=== PATIENT | male | born 1985 | race Caucasian/White ===

== ENCOUNTER 2024-01-10 10:59 | Emergency (ER) | payer OTHER, SELFPAY ==
[2024-01-10] VITALS (12 sets, daily range): BP systolic 125–176; BP diastolic 78–98; PULSE 70–89; RESP 18; TEMP 36.7; O2SAT 97–99
--- NOTE | 2024-01-10 11:13 | ED.GENADUL_ITS ---
Discharge Plan Disposition Patient Disposition: Home Condition: Stable Discharge Details Clinical Impression: Staph skin infection Primary Care Provider: Unknown,Unknown ED Provider: Jorje Flynn Home Meds and New Rx's Prescriptions: Continued doxycycline monohydrate 100 mg capsule 100 mg PO BID hydroxyzine HCl 50 mg tablet 50 mg PO BID ibuprofen 200 mg tablet 600 mg PO BID PRN buprenorphine HCl 2 mg tablet, sublingual 2 mg sublingual DAILY buprenorphine HCl 8 mg tablet, sublingual 8 mg sublingual DAILY Discharge Instructions Instructions: MRSA (Methicillin-Resistant Staphylococcus Aureus) (ED) Additional Instructions: You were seen in the emergency department for your multiple sites of staph skin infection. We provided you with a topical antibiotic called mupirocin to aid in wound care at your facility. The wound culture is pending, there is no signs of sepsis on labs, HIV and hep B&C tests are send outs so you should have results next week. Please continue generalized wound care, continue mupirocin and doxycycline. Please return for any increasing tachycardia, respiratory rate, fever, red streaking up the arms from the sites but I think they are localized small abscesses. Apply the mupirocin with every wound dressing change. Use OTC HibiClens soap in the shower for 5-10 days for decolonization. Discharge Data Discharge Date/Time-TO BE ENTERED AT DEPARTURE: 01/10/24 12:42 HPI General Date/Time Provider Initiated Documentation: 01/10/24 11:09 . HPI Narrative: 38 year-old male presents to ED today by DOC/ambulating with a chief complaint of multiple minor skin lesions popping up in bilateral forearms, L most focal, draining purulent material with onset over the past few days. Quality described as mild tenderness to touch, denies new punctures or trauma to the area- has past Xylazine use, history of MRSA, no radiation to fever, tachycardia, nausea, syncope, palpitations, vomiting. Severity is described as mild to moderate. Palliating factors include has bandages by assisted staff, on doxycycline per assisted med staff. Provoking factors include nothing specific. Patient not anticoagulated. Related Data Home Medications Medication Instructions Recorded Confirmed buprenorphine HCl 2 mg sublingual 2 mg sublingual DAILY 01/10/24 01/10/24 tablet buprenorphine HCl 8 mg sublingual 8 mg sublingual DAILY 01/10/24 01/10/24 tablet doxycycline monohydrate 100 mg 100 mg PO BID 01/10/24 01/10/24 capsule hydroxyzine HCl 50 mg tablet 50 mg PO BID 01/10/24 01/10/24 ibuprofen 200 mg tablet 600 mg PO BID PRN 01/10/24 01/10/24 Allergies Allergy/AdvReac Type Severity Reaction Status Date / Time Sulfa (Sulfonamide Allergy Severe Anaphylaxis Verified 01/10/24 11:05 Antibiotics) General Stated Complaint: Cellulitis FELIX: 3 Review of Systems All systems reviewed & are unremarkable except as noted in HPI and below Exam Narrative Exam Narrative: GENERAL APPEARANCE: Well-nourished, non-toxic, awake and alert, atraumatic, no acute distress. SKIN: Warm, pink, dry, multiple small draining lesions to the left forearm, early lesion on the right dorsal hand, all have scant purulent material but need no incision and drainage, no lymphadenitis spreading up the arm HEAD: Normocephalic, atraumatic, normal hair distribution for gender/age. EYES: Pupils PERRLA, EOMs intact without nystagmus, normal conjunctiva, no exudates on lids/lashes. ENT: Nares patent, no circumoral cyanosis, no facial swelling NECK: Supple, trachea midline, painless cervical ROM. LUNGS/CHEST: Lungs CTA bilaterally- no rhonchi/rales/wheezes diffusely, non- labored respirations, normal A/P diameter, symmetrical expansion, no chest wall deformity HEART (CV/PV): Regular rate and rhythm without murmur, no peripheral edema, no JVD. ABDOMEN: Soft, non-distended, no guarding, no tenderness. MSK: Normal ROM, no swelling/deformity to bilateral UEs or LEs, moving all extremities without weakness, no cyanosis, spine midline without tenderness, normal curvature. NEURO: Mental Status AAOx4 - alert to person, place, time, events No facial droop, no forehead involvement. Motor: No focal weakness - strength 5/5 in bilateral UEs and LEs, proximal and distal, symmetric. Sensory: sensation intact to light touch globally. Gait normal: patient ambulated without ataxia into ED room. PSYCH: euthymic, cooperative, pleasant, appropriate speech Course Vital Signs Vital signs: Vital Signs Temperature 36.7 C 01/10/24 11:02 Pulse 88 01/10/24 11:02 Respiratory Rate 18 01/10/24 11:02 Blood Pressure 176/89 H 01/10/24 11:02 Pulse Oximetry 99 01/10/24 11:02 Temperature 36.7 C 01/10/24 11:02 Temperature Source Skin 01/10/24 11:02 Pulse 88 01/10/24 11:02 Respiratory Rate 18 01/10/24 11:02 Respiratory Effort Normal, Non-Labored 01/10/24 11:05 Blood Pressure 176/89 H 01/10/24 11:02 Blood Pressure Position Sitting 01/10/24 11:02 Pulse Oximetry 99 01/10/24 11:02 Oxygen Delivery Method Room Air 01/10/24 11:02 Oxygen Flow Rate 0 01/10/24 11:02 Pain Level 0 01/10/24 11:02 Medical Decision Making This dictation utilizes [id number] dictation software and may contain unedited grammatical errors. 38 y/o M presents to ED today with a chief complaint of likely staph skin in fections, placed on doxycycline by [facility] medical staff, needs laboratory workup. Patient has history of IVDU including Xylazine, history of MRSA, has multiple lesions of R & L forearms, denies new IVDU. no fevers, no lymphadenitis. Patients' medical history: History of IVDU, history of MRSA. Family and social history: incarcerated. Pertinent exam findings / vital signs include SKIN: Warm, pink, dry, multiple small draining lesions to the left forearm, early lesion on the right dorsal hand, all have scant purulent material but need no incision and drainage, no lymphadenitis spreading up the arm. Differential / pathologies of concern include staph skin infection, not drainable abscess', cellulitis, unlikely sepsis. Diagnostic studies of: -CBC, CMP, HIV Rapid & Ab, Hep B/C Panel, Blood Cx's, Lactate, Procalcitonin. -CBC shows no leukocytosis -Lactate within normal limits, procalcitonin negative -Mild LFTs on CMP otherwise benign -HIV rapid negative -Other studies pending, send-outs Interventions of: -continue PO doxycyline, add mupirocin to wound care with DOC medical staff. ED Course/Assessment/Plan: 38-year-old incarcerated individual presents with minor staph skin lesions of left forearm as well as early forming lesion on the right dorsal hand, likely consistent with MRSA infection, added mupirocin and recommend he continue doxycycline, performed laboratory studies for the medical staff at [facility], do not suspect sepsis at this time, patient is stable and has adequate wound care by the dressings [facility] medical staff has applied, counseled strict return criteria for any developing fever, tachycardia, red streaking up the arms. Findings not consistent with sepsis, necrotizing gangrene. Disposition of staph skin infection. Patient verbalized understanding of the plan and return to ED criteria and engaged in shared decision making. Medical Records Medical records reviewed: Yes I reviewed the patient's medical records. Lab Data Lab results reviewed: Yes I reviewed the patient's lab results. Labs: 01/10/24 12:03 Blood Blood Culture - Pending 01/10/24 08:30 Leg - Front Wound Culture - Pending 01/10/24 08:30 Leg - Front Gram Stain - Pending Laboratory Tests Range/Units 01/10/24 11:20 WBC (4.4-10.8) 10^3/uL 6.32 RBC (4.36-5.78) 10^6/uL 5.28 Hgb (13.5-17.5) g/dL 14.4 Hct (40.0-50.0) % 45.9 MCV (80-95) fL 87 MCH (27.0-33.0) pg 27.3 MCHC (32.0-36.0) % 31.4 L RDW (11.8-14.1) % 13.7 Plt Count (130-400) 10^3/uL 317 MPV (8.0-11.0) fL 9.1 Immature Gran % 0.5 Neutrophils % 60.4 Lymphocytes % 27.1 Monocytes % 9.2 Eosinophils % 2.2 Basophils % 0.6 Nucleated RBC % (0.0-0.3) % 0.0 Absolute Neutrophils (1.2-6.7) 10^3/uL 3.82 Absolute Lymphocytes (1.2-3.4) 10^3/uL 1.71 Absolute Monocytes (0.1-0.8) 10^3/uL 0.58 Absolute Eosinophils (0.0-0.7) 10^3/uL 0.14 Absolute Basophils (0.0-0.2) 10^3/uL 0.04 VBG Lactate (0.6-1.4) mmol/L 1.2 Sodium (136-145) mmol/L 142 Potassium (3.5-5.1) mmol/L 4.4 Chloride (98-107) mmol/L 104 Carbon Dioxide (21.0-32.0) mmol/L 30.7 Anion Gap (3-11) mmol/L 7.3 BUN (7-18) mg/dL 16 Creatinine (0.70-1.30) mg/dL 0.8 Est GFR (CKD-EPI 2020) (mL/min/1.73m2) 115.45 Glucose (74-106) mg/dL 84 Calcium (8.5-10.1) mg/dL 9.0 Total Bilirubin (0.2-1.0) mg/dL 0.3 Conjugated Bilirubin (0.0-0.2) mg/dL 0.1 AST (15-37) U/L 46 H ALT (16-63) U/L 73 H Alkaline Phosphatase (46-116) U/L 97 Total Protein (6.4-8.2) g/dL 8.2 Albumin (3.4-5.0) g/dL 3.3 L Procalcitonin ng/mL < 0.1 HIV 1&2 Antibody Rapid (Negative) Negative Quality:SDOH Health Related Social Needs: No Data to Display PFSH All Active Problems (Updated 01/10/24 @ 12:18 by KRIS De La Torre) Staph skin infection (Acute) Social History Smoking/Tobacco Use Status: Current every day Tobacco Type: e-cigarettes and smokeless tobacco Smoking risk assessment performed?: Yes Drug use: Daily Substance use type: crack/cocaine and IV drugs
[2024-01-10 11:32] LABS: Abs Immature Grans 0.03 10^3/uL (0.0-0.06); Absolute Basophil Count 0.04 10^3/uL (0.0-0.2); Absolute Eosinophil Count 0.14 10^3/uL (0.0-0.7); Absolute Lymphocyte Count 1.71 10^3/uL (1.2-3.4); Absolute Monocyte Count 0.58 10^3/uL (0.1-0.8); Absolute Neutrophil Count 3.82 10^3/uL (1.2-6.7); Basophils % 0.6; Eosinophils % 2.2; HCT 45.9 % (40.0-50.0); HGB 14.4 g/dL (13.5-17.5); Immature Grans % 0.5; Lactate 1.2 mmol/L (0.6-1.4); Lymphocytes % 27.1; MCH 27.3 pg (27.0-33.0); MCHC 31.4 % (32.0-36.0); MCV 87 fL (80-95); MPV 9.1 fL (8.0-11.0); Monocytes % 9.2; Neutrophils % 60.4; Platelet Count 317 10^3/uL (130-400); RBC 5.28 10^6/uL (4.36-5.78); RDW 13.7 % (11.8-14.1); WBC 6.32 10^3/uL (4.4-10.8)
[2024-01-10 11:49] LABS: ALT 73 U/L (16-63); AST 46 U/L (15-37); Albumin 3.3 g/dL (3.4-5.0); Alkaline Phosphatase 97 U/L (46-116); Anion Gap 7.3 mmol/L (3-11); BUN 16 mg/dL (7-18); Bilirubin, Direct 0.1 mg/dL (0.0-0.2); Bilirubin, Total 0.3 mg/dL (0.2-1.0); CO2 30.7 mmol/L (21.0-32.0); CREATININE 0.8 mg/dL (0.70-1.30); Chloride 104 mmol/L (98-107); Estimated GFR 115.45 (mL/min/1.73m2); Glucose 84 mg/dL (74-106); Potassium 4.4 mmol/L (3.5-5.1); Sodium 142 mmol/L (136-145); Total Protein 8.2 g/dL (6.4-8.2)
[2024-01-10] MEDS: Mupirocin 2% Oint. 22 GM TUBE TP (12:15)
[2024-01-10 12:17] LABS: Procalcitonin < 0.1 ng/mL
[2024-01-10 12:20] LABS: HIV 1/2 Ab Rapid Negative (Negative)
[2024-01-10 19:05] LABS: Hepatitis B Surface Ag Negative (Negative)
[2024-01-10 19:34] LABS: HIV-1/2 Ag & Ab Screen Negative (Negative)
[2024-01-10 20:25] LABS: Hepatitis C Ab w Rflx HCV PCR Reactive (Negative)
[2024-01-11 13:30] LABS: HCV RNA Detection Quantitative 1600000 IU/mL (Undetected); HCV RNA Qualitative Detected (Undetected)
[2024-01-11 16:50] LABS: HBc IgM Ab, S Negative (Negative)
--- NOTE | 2024-01-12 12:00 | W.ED.FU ---
Date of service: 01/10/24 Follow Up Plan: Patient recently evaluated in the emergency department. Had a leg wound. Culture results reported today that were positive for MRSA. Patient is on doxycycline which should be sufficient.
== END 2024-01-10 12:42 | disposition home or self-care (01) ==
PROVIDERS: Emergency Provider Physician Assistant
DX: L08.9 Local infection of the skin and subcutaneous tissue, unspecified (principal); B95.8 Unspecified staphylococcus as the cause of diseases classified elsewhere
CPT/HCPCS: 36415; 80048; 80076; 84145; 86803; 87040; 87077; 87340; 87389; 87522; 99285; 83605; 85025; 86705; 87070; 87186; 87205; 99283

== ENCOUNTER 2024-04-20 08:32 | Emergency (ER) | payer OTHER, SELFPAY ==
[2024-04-20 08:39] VITALS: BP 126/92; PULSE 77; RESP 18; TEMP 35.8; O2SAT 93
[2024-04-20 08:50] VITALS: BP 126/92; PULSE 77; RESP 18; TEMP 35.8; O2SAT 93
--- NOTE | 2024-04-20 09:12 | ED.GENADUL_ITS ---
Discharge Plan Disposition Patient Disposition: Home Condition: Good Discharge Details Clinical Impression: Enlarged salivary gland Primary Care Provider: Unknown,Unknown ED Provider: Jorje Leary Home Meds and New Rx's Prescriptions: New clindamycin HCl 150 mg capsule 450 mg PO Q6H 7 Days Qty: 84 0RF Discontinued amoxicillin 500 mg capsule 500 mg PO TID No Action ibuprofen 200 mg tablet 600 mg PO BID PRN buprenorphine HCl 2 mg tablet, sublingual 2 mg sublingual DAILY buprenorphine HCl 8 mg tablet, sublingual 24 mg sublingual DAILY acetaminophen 325 mg capsule 650 mg PO Q6H PRN Discharge Instructions Instructions: Salivary Gland Infection (DC) Additional Instructions: At this time I suspect that you may have a small stone stuck in your sublingual salivary gland. There is a small chance that there could be an infection there as well. We are transitioning your antibiotic to clindamycin, please take this as prescribed. Please also suck on sour candies or lemon juice to help in the removal and expulsion of any extra fluid that is in that gland. Take Tylenol and Motrin as needed for pain. If you notice any worsening of your symptoms, or any new symptoms such as vomiting, diarrhea, fever, chills, shortness of breath, chest pain, numbness, weakness, or fainting , please return immediately to the emergency department for reevaluation. Please follow up with your primary care provider as soon as possible for reassessment and reevaluation. As always, it was a pleasure participating in your medical care today. HPI General Date/Time Provider Initiated Documentation: 04/20/24 08:35 . HPI Narrative: This is a 38-year-old male with a past medical history of a sulfa allergy, and notably poor dentition who presents today for slight swelling in his mouth. Patient has been on amoxicillin for the past 5 days for suspected dental infection. He has multiple dental caries. He has been doing well with this, but has noticed over the last 24 hours a has had mild swelling beneath the tongue. He denies any significant pain. He denies any difficulty swallowing, drinking, he denies any globus sensation or pain in his neck. He denies fever or chills. He denies any other complaints. He was evaluated by the half-way system medical practitioner, and it was recommended they come to the ER for CT imaging. That being said patient is refusing any CT imaging and does not want any further workup. No other complaints at this time. No other modifying factors. Related Data Home Medications ?Medication ?Instructions ?Recorded ?Confirmed buprenorphine HCl 2 mg sublingual 2 mg sublingual DAILY 01/10/24 04/20/24 tablet buprenorphine HCl 8 mg sublingual 24 mg sublingual DAILY 01/10/24 04/20/24 tablet ibuprofen 200 mg tablet 600 mg PO BID PRN 01/10/24 04/20/24 acetaminophen 325 mg capsule 650 mg PO Q6H PRN 04/20/24 04/20/24 clindamycin HCl 150 mg capsule 450 mg (3 x 150 mg) PO Q6H 7 days 04/20/24 #84 caps Previous Rx's ?Medication ?Instructions ?Recorded clindamycin HCl 150 mg capsule 450 mg (3 x 150 mg) PO Q6H 7 days 04/20/24 #84 caps Allergies Allergy/AdvReac Type Severity Reaction Status Date / Time Sulfa (Sulfonamide Allergy Severe Anaphylaxis Verified 04/20/24 08:44 Antibiotics) General Stated Complaint: DentalOral FELIX: 3 Review of Systems All systems reviewed & are unremarkable except as noted in HPI and below Exam Narrative Exam Narrative: 1.Const: Well-nourished, Well-developed, appearing stated age 2.Eyes: PERRL, no conjunctival injection, and symmetrical lids. 3.ENT: Atraumatic external nose and ears. Moist MM. Neck: Symmetric, trachea midline, No thyromegaly. No evidence of Ludewig's angina, no swelling in the posterior oropharynx. No signs of swelling in the neck. No significant cervical lymphadenopathy. No large mask or fluid collection in the neck on palpation in the anterior lateral aspects of the 3 zones. Patient does have notably poor dental caries throughout, but no subapical or periapical abscess that I can palpate. The area of swelling is specifically on the sublingual s alivary gland just beneath the tongue. I do not see any evidence of large stone or sialolith, but there is minimal swelling there. No pus or drainage otherwise. The area is just localized on the superficial tissue, and there is no transition to the deep tissues whatsoever. No other abnormality. No signs of airway compromise whatsoever. Diameter of this small soft palpable nonfirm nonerythematous area is only about 7 mm. 4.CVS: +S1/S2, No murmurs or gallops. Peripheral pulses 2+ and equal in all extremities. Brisk capillary refill in all extremities. 5.RESP: Unlabored respiratory effort. Clear to auscultation bilaterally. No wheezes rales or rhonchi 6.GI: Soft, Nontender/Nondistended, No hepatosplenomegaly. No guarding or rebound. 7.MSK: Normocephalic/Atraumatic, Extremities w/o deformity or ttp No cyanosis or clubbing, Normal movement of all extremities 8.Skin: Warm, Dry. No rashes or lesions. 9.Neuro: financial services education consultant II-XII grossly intact. Sensation grossly intact, no focal n eurologic deficits. 10.Psych: (AAO) x3. Appropriate mood and affect Course Vital Signs Vital signs: Vital Signs Temperature 35.8 C L 04/20/24 08:39 Pulse 77 04/20/24 08:39 Respiratory Rate 18 04/20/24 08:39 Blood Pressure 126/92 H 04/20/24 08:39 Pulse Oximetry 93 04/20/24 08:39 Temperature 35.8 C L 04/20/24 08:50 Temperature Source Tympanic 04/20/24 08:50 Pulse 77 04/20/24 08:50 Respiratory Rate 18 04/20/24 08:50 Respiratory Effort Normal 04/20/24 08:49 Blood Pressure 126/92 H 04/20/24 08:50 Blood Pressure Position Sitting 04/20/24 08:50 Pulse Oximetry 93 04/20/24 08:50 Oxygen Delivery Method Room Air 04/20/24 08:50 Oxygen Flow Rate 0 04/20/24 08:50 Pain Level 5 04/20/24 08:50 Medical Decision Making This is a 38-year-old male with a past medical history of a sulfa allergy, and notably poor dentition who presents today for slight swelling in his mouth. Patient has been on amoxicillin for the past 5 days for suspected dental infection. He has multiple dental caries. He has been doing well with this, but has noticed over the last 24 hours a has had mild swelling beneath the tongue. He denies any significant pain. He denies any difficulty swallowing, drinking, he denies any globus sensation or pain in his neck. He denies fever or chills. He denies any other complaints. He was evaluated by the half-way system medical practitioner, and it was recommended they come to the ER for CT imaging. That being said patient is refusing any CT imaging and does not want any further workup. No other complaints at this time. No other modifying factors. Neck: Symmetric, trachea midline, No thyromegaly. No evidence of Ludewig's angina, no swelling in the posterior oropharynx. No signs of swelling in the neck. No significant cervical lymphadenopathy. No large mask or fluid collection in the neck on palpation in the anterior lateral aspects of the 3 zones. Patient does have notably poor dental caries throughout, but no subapical or periapical abscess that I can palpate. The area of swelling is specifically on the sublingual salivary gland just beneath the tongue. I do not see any evidence of large stone or sialolith, but there is minimal swelling there. No pus or drainage otherwise. The area is just localized on the superficial tissue, and there is no transition to the deep tissues whatsoever. No other abnormality. No signs of airway compromise whatsoever. Diameter of this small soft palpable nonfirm nonerythematous area is only about 7 mm. Symptoms at this time notably clinically inconsistent with Ludewig's angina, large abscess, or other significant airway compromising or life-threatening etiology. Symptoms consistent with mild sublingual gland swelling likely secondary to a small sialolith. Symptoms inconsistent with a large abscess. Out of an abundance of precaution we will transition to clindamycin. Will recommend sialagogues back at present. I did contact the caregiver at the half-way and discussed this with her, and she understands. Eden had no additional questions. Patient will be discharged home. Discussed red flags for which to return. I have extensively reviewed the treatment plan and discharge instructions with the patient. I have addressed all patient concerns at this time. The patient was made aware of what symptoms to monitor for that would warrant a return to the emergency department. Discussed the plan with the patient, they demonstrate verbal understanding and agreement with our assessment and plan at this time. The documentation in this chart was dictated using [employer] dictation software. Please excuse any dictation errors. Quality:SDOH Health Related Social Needs: No Data to Display PFSH All Active Problems (Updated 04/20/24 @ 09:20 by Jorje Leary DO) Enlarged salivary gland (Acute) Social History (Reviewed 04/20/24 @ 09:15 by PLACIDO Galloway Smoking/Tobacco Use Status: Current every day Tobacco Type: e-cigarettes and smokeless tobacco Smoking risk assessment performed?: Yes Drug use: Daily Substance use type: crack/cocaine and IV drugs
== END 2024-04-20 09:23 | disposition home or self-care (01) ==
PROVIDERS: Emergency Provider Student in an Organized Health Care Education/Training Program
DX: K11.1 Hypertrophy of salivary gland (principal); K08.89 Other specified disorders of teeth and supporting structures
CPT/HCPCS: 99283